=== PATIENT | male | born 1960 | race Caucasian/White ===

== ENCOUNTER 2017-02-07 05:38 | Inpatient (IN) | payer BC, OTHER ==
[2016-12-27 14:09] VITALS: BMI 41.0
[2016-12-27 14:27] VITALS: BMI 41.0
--- NOTE | 2016-12-27 14:48 | PAT Medication Instructions ---
Service Date Dec 27, 2016. 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
--- NOTE | 2016-12-27 15:45 | DIAGNOSTIC IMAGING REPORT ---
CHEST 2 VIEWS ROUTINE HISTORY: Preop. COMPARISON: None. FINDINGS: The lungs are clear. Cardiac silhouette is normal in size. No pleural effusions. No pneumothorax. IMPRESSION: No acute process. Electronically signed by: Lamont Vann M.D. 12/27/2016 3:43 PM Dictated Date/Time: 12/27/2016 3:42 PM
[2016-12-27 16:16] LABS: BASO % 0.4 %; BASO ABS # 0.04 K/uL (0-0.2); COMPLETE YES; EOS % 1.5 %; HEMATOCRIT 43.1 % (42-52); IG% 0.2 %; LYMPH % 26.4 %; LYMPH ABS # 2.66 K/uL (1.2-3.4); MEAN CELL VOLUME 86.4 fL (80-100); MEAN CORPUSCULAR HEMOGLOBIN 30.1 pg (25-34); MEAN CORPUSCULAR HGB CONC 34.8 g/dl (32-36); MEAN PLATELET VOLUME 11.5 fL (7.4-10.4); MONO % 6.9 %; NEUT % 64.6 %; PLATELET COUNT 201 K/uL (130-400); RED BLOOD COUNT 4.99 M/uL (4.7-6.1); WHITE BLOOD COUNT 10.06 K/uL (4.8-10.8)
[2016-12-27 16:25] LABS: PROTHROMBIN TIME (PATIENT) 10.7 SECONDS (9.0-12.0)
[2016-12-27 16:34] LABS: URINE APPEARANCE CLEAR (CLEAR); URINE BILIRUBIN NEG (NEG); URINE COLOR YELLOW; URINE NITRITE NEG (NEG); URINE SPECIFIC GRAVITY 1.026 (1.000-1.030); UROBILINOGEN NEG (NEG); ZZUR CULT IF INDIC CLEAN CATCH NO
[2016-12-27 16:35] LABS: BUN/CREATININE RATIO 22.1 (10-20); CALCIUM 8.7 mg/dl (8.5-10.1); CREATININE 0.73 mg/dl (0.60-1.40); POTASSIUM 3.7 mmol/L (3.5-5.1)
[2016-12-27 16:48] LABS: MANUAL MICROSCOPIC REQUIRED? NO; REVIEW REQ? NO
[2016-12-28 06:16] LABS: ESTIMATED AVERAGE GLUCOSE 111 mg/dl; HA1C FLAG Normal (Normal)
--- NOTE | 2016-12-28 15:52 | HISTORY & PHYSICAL EXAMINATION ---
DATE OF ADMISSION: 01/16/2017 CHIEF COMPLAINT: Bilateral knee pain. HISTORY OF PRESENT ILLNESS: Mr. Blackburn is a 56-year-old male with a 6-month history of bilateral knee pain. The patient rates his pain an 8/10. He has pain with his daily activities. He has limited standing and walking tolerance. Pain is worse with weightbearing. The patient has failed injections, bracing, PT and anti-inflammatories. He has failed conservative treatment and is scheduled for a bilateral knee replacement. PAST MEDICAL HISTORY: Hypertension and sleep apnea with CPAP. He denies heart disease, diabetes or DVT. PAST SURGICAL HISTORY: Cholecystectomy. SOCIAL HISTORY: The patient denies alcohol or tobacco use. He lives in a single rossy home. 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 FAMILY HISTORY: Positive for DVT in his brother who at age 43. MEDICATIONS: Diltiazem 240 mg daily, lisinopril 20 mg daily, aspirin 81 mg daily. ALLERGIES: None. REVIEW OF SYSTEMS: See HPI. Ten other systems reviewed, all negative. PHYSICAL EXAMINATION: VITAL SIGNS: Height 5 feet 10 inches, weight 285 pounds, BMI is 41. GENERAL: This is a well-developed, well-nourished male who is alert and oriented x3. Mood and affect are appropriate. HEENT: Normocephalic, atraumatic. Mucous membranes are moist and intact. NECK: Supple without lymphadenopathy. HEART: Regular rate and rhythm without murmurs, rubs or gallops. LUNGS: Clear to auscultation without wheezes or rhonchi. ABDOMEN: Soft and nontender. Bowel sounds are equal and active. EXTREMITIES: No ecchymosis, redness or warmth. He has neutral alignment. Range of motion is from 0-120 degrees bilaterally. He has moderate effusion on the right. He has +2 laxity on the right and +1 medial laxity on the left. He is otherwise neurovascularly intact. X-RAY EXAMINATION: AP and lateral views show joint space narrowing and osteophyte formation, right greater than left. IMPRESSION: Degenerative joint disease, bilateral knees. PLAN: The patient will be admitted for a bilateral total knee arthroplasty. We will plan on aspirin for DVT prophylaxis. The patient is going to consider home health versus a short stay at [facility].
--- NOTE | 2017-02-06 19:44 | HISTORY & PHYSICAL EXAMINATION ---
DATE OF ADMISSION: 02/07/2017 HISTORY OF PRESENT ILLNESS: The patient is a 56-year-old white male being seen with complaints of bilateral knee pain with severe endstage DJD bilateral knee. He has failed attempts at conservative management including physical therapy, anti-inflammatories, relative rest, activity modification, corticosteroid injections and viscosupplementations. PAST MEDICAL HISTORY: Significant for hypertension, sleep apnea, utilizing CPAP. He denies history of heart disease, diabetes or DVT. PAST SURGICAL HISTORY: Significant for cholecystectomy. SOCIAL HISTORY: The patient denies history of alcohol or tobacco use. He lives in a single rossy home. 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 FAMILY HISTORY: Consistent with DVT in his brother who at age 43. MEDICATIONS: Diltiazem 20 mg, lisinopril 20 mg p.o. daily, Aspirin 81 mg p.o. daily. ALLERGIES: None. REVIEW OF SYSTEMS: See history of present illness for pertinent positives. PHYSICAL EXAMINATION: HEENT: Otherwise unremarkable, atraumatic, normocephalic, 5 foot, 10 inches, 285 pounds, BMI of 41. HEART: Regular at 72 beats per minute. No murmurs are noted. LUNGS: Clear without rales, rhonchi, or wheezes noted. ABDOMEN: Soft, nondistended. Bowel sounds are present in all 4 quadrants. RECTAL: No rectal examination was performed. MUSCULOSKELETAL: Consistent with that of ongoing bilateral knee pain. PLAN: Bilateral total knee arthroplasty, postoperative pain management, DVT prophylaxis, antibiotics as noted above.
[2017-02-07] VITALS (10 sets, daily range): BP systolic 122–167; BP diastolic 78–92; PULSE 73–112; TEMP 36.6–37.2; O2SAT 93–98; Ht 177.8 cm; Wt 130.5 kg
[~2017-02-07] VITALS: Ht 177.8 cm; Wt 130.5 kg
[~2017-02-07 05:38] MED LIST: ACETAMINOPHEN 500 MG TAB PO SCH; ASPI81TA28 PO; CEFAZOLIN 3000MG IV PUSH 15 ML IV SCH; CeleBREX 200 MG CAP PO SCH; DEXAMETHASONE 4 MG TAB PO SCH; DILT-115 PO; FAMOTIDINE 20 MG TAB PO SCH; GABAPENTIN 300 MG CAP PO SCH; LACTATED RINGER'S 1000ML 1,000 ML IV SCH; LACTATED RINGER'S 1000ML 500 ML IV ONE; LACTATED RINGER'S 1000ML IV SCH; LISI-461 PO; NAPR1TAB9 PO; OXYC-59 PO; PANT1TAB3 PO; ROPIVACAINE 5MG/ML 30 ML 150 MG, BUPIVACAINE 0.5% MPF INJ 30 ML, EpINEphrine HCL INJ 0.... INFIL SCH; TRANEXAMIC ACID INJ 1,000 MG in SYRINGE 0 ML IV SCH; ZOLP10TA6 PO
[2017-02-07] MEDS ORDERED: CEFAZOLIN 3000MG IV PUSH 15 ML IV SCH (06:00)
[2017-02-07] MEDS ORDERED: ACETAMINOPHEN 500 MG TAB PO SCH (06:00)
[2017-02-07] MEDS ORDERED: CeleBREX 200 MG CAP PO SCH (06:00)
[2017-02-07] MEDS ORDERED: LACTATED RINGER'S 1000ML IV SCH (06:00)
[2017-02-07] MEDS ORDERED: GABAPENTIN 300 MG CAP PO SCH (06:00)
[2017-02-07] MEDS ORDERED: DEXAMETHASONE 4 MG TAB PO SCH (06:00)
[2017-02-07] MEDS ORDERED: METOCLOPRAMIDE HCL 10 MG TAB PO SCH (06:00)
[2017-02-07] MEDS ORDERED: FAMOTIDINE 20 MG TAB PO SCH (06:00)
[2017-02-07] MEDS ORDERED: ROPIVACAINE 5MG/ML 30 ML 150 MG, BUPIVACAINE 0.5% MPF INJ 30 ML, EpINEphrine HCL INJ 0.... INFIL SCH ×8 (06:00)
[2017-02-07] MEDS ORDERED: BUPIVACAINE 0.5 % 5 MG/1 ML PF 10ML VIAL ONE (06:27)
[2017-02-07] MEDS ORDERED: BUPIVACAINE 0.25% 30 ML VIAL ONE (06:28)
[2017-02-07] MEDS ORDERED: DEXAMETHASONE SOD INJ 4 MG/ML VIAL ONE (06:29)
[2017-02-07] MEDS ORDERED: EpINEphrine INJ 1MG/ML AMP 1 MG/ML AMP ONE (06:29)
[2017-02-07] MEDS: TRANEXAMIC ACID INJ 1,000 MG in SYRINGE 0 ML IV SCH ×2 (06:30→08:00)
[2017-02-07] MEDS ORDERED: ACETAMINOPHEN 500 MG TAB PO ONE (06:44)
[2017-02-07] MEDS ORDERED: CeleBREX 200 MG CAP ONE (06:44)
[2017-02-07] MEDS ORDERED: CEFAZOLIN SOD 2000MG/10 ML IV PUSH IV ONE (06:44)
[2017-02-07] MEDS ORDERED: GABAPENTIN 300 MG CAP PO ONE (06:44)
[2017-02-07] MEDS ORDERED: METOCLOPRAMIDE HCL 10 MG TAB PO ONE (06:44)
[2017-02-07] MEDS ORDERED: DEXAMETHASONE 4 MG TAB ONE (06:44)
[2017-02-07] MEDS ORDERED: FAMOTIDINE 20 MG TAB ONE (06:44)
[2017-02-07] MEDS ORDERED: OXYC15TA89 PO (06:48)
[2017-02-07] MEDS ORDERED: CEFAZOLIN SOD 3000MG/15 ML IV PUSH IV ONE (06:48)
--- NOTE | 2017-02-07 06:55 | History & Physical Bridge Note ---
H&P Re-Evaluation Bridge Note: I have examined the patient, reviewed the History & Physical and in the interval since the performance of the History & Physical I have noted the following changes of clinical significance: No changes noted
[2017-02-07] MEDS ORDERED: MIDAZOLAM HCL 1 MG/ML 2ML VIAL ONE (07:02)
[2017-02-07] MEDS ORDERED: FENTANYL CITRATE INJ 50 MCG/1 ML 2 ML VIAL ONE (07:02)
[2017-02-07] MEDS ORDERED: EpHEDrine SULFATE 50MG/5ML SYR ONE (07:10)
[2017-02-07] MEDS ORDERED: LIDOCAINE HCL 2% 2 ML VIAL (20MG/ML) ONE (07:10)
[2017-02-07] MEDS ORDERED: PROPOFOL IV EMULSION 10 MG/ML 20 ML VIAL IV ONE ×3 (07:10→10:26)
[2017-02-07] MEDS ORDERED: ORTHO JOINT ANESTHETIC ONE (07:37)
[2017-02-07] MEDS ORDERED: POVIDONE-IODINE OP SOLN 30 ML BTL ONE (07:37)
[2017-02-07] MEDS ORDERED: BACITRACIN 50000 UNIT VIAL ONE (07:37)
[2017-02-07] MEDS ORDERED: ATROPINE SULFATE 0.1 MG/ML 5ML SYR IV PRN (09:00)
[2017-02-07] MEDS ORDERED: EpHEDrine SULFATE INJ 50 MG/ML AMP IV PRN (09:00)
[2017-02-07] MEDS ORDERED: ONDANSETRON INJ 2 MG/ML 2 ML VIAL IV PRN ×2 (09:00→11:00)
[2017-02-07] MEDS ORDERED: FENTANYL CITRATE INJ 50 MCG/1 ML 2 ML VIAL IV PRN (09:00)
--- NOTE | 2017-02-07 10:21 | [facility] Operative Report ---
Operative Report Operative Date Feb 07, 2017. Pre-Operative Diagnosis Degenerative joint disease Post-Operative Diagnosis Degenerative joint disease Procedure(s) Performed Bilateral total knee arthroplasties utilizing [employer]uga [employer] Nephew journey 2 patient matched total knee arthroplasty 6 right is 6 femur 6 tibia 10 Kirsten 35 oval patella left 6 femur 6 tibia 12 Kirsten [address] Jimi Pa Board Operator Surgeon(s) Jeremy Chowdary PAC Estimated Blood Loss 5cc Findings Patient presents after failing attempts at conservative management with severe end-stage tricompartmental degenerative joint disease bilateral knees varus alignment subchondral cystic changes osteophytes sclerosis varus alignment large muscle conservative therapy including injections anti-inflammatories relative rest activity modification corticosteroid injections as well as viscose supplementation Specimens A: Right knee bone and tissue B: Left knee bone and tissue Complication(s) None Disposition Recovery Room / PACU Indications Patient presents with severe end-stage DJD nonresponse to conservative therapy bilaterally patient has subchondral cystic changes sclerosus varus alignment marginal osteophytes with the degenerative changes medial compartment patellofemoral compartment Description of Procedure After proper prepping and draping of the bilateral lower extremities, an anterior midline incision was made over the region of the extensor extensor mechanism of the left knee. After meticulous hemostasis was obtained and maintained in subcutaneous tissues a medial parapatellar incision was made The patella was subluxed lateralward the medial lateral gutter were cleaned from any hypertrophic synovitis and scar tissue of the distal femoral block was placed and the distal femoral osteotomy cut was made subsequently the chamfers anterior and posterior osteotomy cuts were made utilizing the 4-in-1 block the tibia was subsequently subluxed anteriorward medial and ateral meniscal remnants were excised in their entirety remnants of the anterior and posterior cruciate ligaments were excised in their entirety excellent exposure of the proximal tibia was obtained the tibial osteotomy guide was placed on the proximal tibial osteotomy cut was made once again the knee was irrigated with copious amounts of sterile saline solution the patella was subsequently everted lateralward thickened scar tissue around the patella was removed the patella was subsequently cut utilizing a freehand technique and was drilled prepared for final preparation and placement of patella socially flexion-extension gaps were checked and the equal and symmetric trials were placed to the appropriate femoral and tibial trials with poly-spacer being placed for equal flexion and extension gaps and full range of motion including extension to 0 and flexion to 140 the trial components after having been taken to recovery range of motion was subsequently removed meticulous hemostasis was obtained and maintained subsequently a knee block injection of joint cocktail including ropivacaine 0.5 % 150 mg. Bupivacaine 0.5% epinephrine 1-200,030 mL's toradol 30 mg dexamethasone 4 mg ketamine 10 mg clonidine 100 micrograms normal saline solution 30 mg was infiltrated into the soft tissues of the posterior knee medial lateral gutters and periosteal synovium special attention was paid to protect neurovascular structures at all times subsequently trial components having been removed the knee was irrigated with sterile saline solution. debris was removed the proximal tibia was subsequently prepared and was made ready for the placement of the tibial component tibial component was also cemented and tamped into position the femoral component was subsequently placed and cemented in the position the patellar component was subsequently cemented in position because hemostasis once again obtained and maintained wound having been thoroughly irrigated with debridement and debridement lavage was performed as well as a medial parapatellar incision closed with #1 Vicryl in interrupted fashion subcutaneous was closed with #2 Vicryl skin was closed with skin clips Next, an anterior midline incision was made over the region of the extensor extensor mechanism of the right knee. After meticulous hemostasis was obtained and maintained in subcutaneous tissues a medial parapatellar incision was made The patella was subluxed lateralward the medial lateral gutter were cleaned from any hypertrophic synovitis and scar tissue of the distal femoral block was placed and the distal femoral osteotomy cut was made subsequently the chamfers anterior and posterior osteotomy cuts were made utilizing the 4-in-1 block the tibia was subsequently subluxed anteriorward medial and ateral meniscal remnants were excised in their entirety remnants of the anterior and posterior cruciate ligaments were excised in their entirety excellent exposure of the proximal tibia was obtained the tibial osteotomy guide was placed on the proximal tibial osteotomy cut was made once again the knee was irrigated with copious amounts of sterile saline solution the patella was subsequently everted lateralward thickened scar tissue around the patella was removed the patella was subsequently cut utilizing a freehand technique and was drilled prepared for final preparation and placement of patella socially flexion-extension gaps were checked and the equal and symmetric trials were placed to the appropriate femoral and tibial trials with poly-spacer being placed for equal flexion and extension gaps and full range of motion including extension to 0 and flexion to 140 the trial components after having been taken to recovery range of motion was subsequently removed meticulous hemostasis was obtained and maintained subsequently a knee block injection of joint cocktail including ropivacaine 0.5 % 150 mg. Bupivacaine 0.5% epinephrine 1-200,030 mL's toradol 30 mg dexamethasone 4 mg ketamine 10 mg clonidine 100 micrograms normal saline solution 30 mg was infiltrated into the soft tissues of the posterior knee medial lateral gutters and periosteal synovium special attention was paid to protect neurovascular structures at all times subsequently trial components having been removed the knee was irrigated with sterile saline solution. debris was removed the proximal tibia was subsequently prepared and was made ready for the placement of the tibial component tibial component was also cemented and tamped into position the femoral component was subsequently placed and cemented in the position the patellar component was subsequently cemented in position because hemostasis once again obtained and maintained wound having been thoroughly irrigated with debridement and debridement lavage was performed as well as a medial parapatellar incision closed with #1 Vicryl in interrupted fashion subcutaneous was closed with #2 Vicryl skin was closed with skin clips.. PA-C was necessary for prepping and drapping as well as wound closure of deep fascia Sub cutaneous tissue and skin and was necessary for the case. A sterile compressive dressings were placed, patient was taken to recovery in stable condition of report dictated by Thierno I attest to the content of the Intraoperative Record and any orders documented therein. Any exceptions are noted below. I attest to the content of the Intraoperative Record and any orders documented therein. Any exceptions are noted below.
[2017-02-07] MEDS ORDERED: ALUMINUM/MAGNESIUM/SIMETH (MAALOX MAX) 30 ML UDC PO PRN (11:00)
[2017-02-07] MEDS ORDERED: BISACODYL 10 MG SUPP PR PRN (11:00)
[2017-02-07] MEDS ORDERED: MAGNESIUM HYDROXIDE SUSP 30 ML UDC PO PRN (11:00)
[2017-02-07] MEDS ORDERED: TAMSULOSIN HCL 0.4 MG CAP PO PRN (11:00)
--- NOTE | 2017-02-07 11:28 | DIAGNOSTIC IMAGING REPORT ---
L KNEE 1 OR 2 VIEWS ROUTINE CLINICAL HISTORY: Postoperative evaluation. COMPARISON: None FINDINGS: Alignment of the total left knee arthroplasty is anatomic. No fracture or unexpected radiopaque foreign bodies are present. Surgical drain and skin sukhdev are noted. IMPRESSION: Expected findings following total left knee arthroplasty. Electronically signed by: Rustam Vargas M.D. 02/07/2017 11:27 AM Dictated Date/Time: 02/07/2017 11:26 AM
--- NOTE | 2017-02-07 11:29 | DIAGNOSTIC IMAGING REPORT ---
R KNEE 1 OR 2 VIEWS ROUTINE CLINICAL HISTORY: Postoperative evaluation. COMPARISON: None FINDINGS: Alignment of the total right knee arthroplasty is anatomic. There is no periprosthetic fracture or unexpected radiopaque foreign body. Drain and skin sukhdev are present. IMPRESSION: Expected findings following total right knee arthroplasty. Electronically signed by: Rustam Vargas M.D. 02/07/2017 11:28 AM Dictated Date/Time: 02/07/2017 11:27 AM
--- NOTE | 2017-02-07 12:37 | Anesthesiology Progress Note ---
Anesthesia Post Op Note Date & Time Feb 07, 2017 at 12:37 Vital Signs Pain Intensity: 6.0 Vital Signs Past 12 Hours Date Time Temp Pulse Resp B/P (MAP) Pulse Ox O2 Delivery O2 Flow Rate FiO2 02/07/17 12:22 73 19 126/78 (94) 98 Nasal Cannula 2.0 02/07/17 11:40 97 Nasal Cannula 2.0 02/07/17 11:40 36.9 77 18 150/87 (108) 97 Nasal Cannula 2.0 02/07/17 11:40 Nasal Cannula 2.0 02/07/17 11:26 36.4 76 17 02/07/17 11:26 76 17 132/81 97 02/07/17 11:21 77 20 02/07/17 11:21 76 20 140/72 95 02/07/17 11:16 77 15 02/07/17 11:16 77 15 144/76 95 02/07/17 11:11 78 17 02/07/17 11:11 80 17 138/92 97 02/07/17 11:06 81 14 02/07/17 11:06 81 14 146/78 95 02/07/17 11:01 80 14 131/78 98 02/07/17 11:01 80 14 02/07/17 10:56 88 20 123/72 94 02/07/17 10:56 88 20 02/07/17 10:54 122/73 02/07/17 10:51 36.5 88 16 123/72 96 Nasal Cannula 3 02/07/17 07:01 36.7 79 20 147/85 96 Room Air Notes Mental Status: alert / awake / arousable, participated in evaluation Pt Amnestic to Procedure: Yes Nausea / Vomiting: adequately controlled Pain: adequately controlled Airway Patency, RR, SpO2: stable & adequate BP & HR: stable & adequate Hydration State: stable & adequate Anesthetic Complications: no major complications apparent
[2017-02-07] MEDS: MoRPHine SULFATE 4 MG/ML 1 ML CARP\\VIAL IV PRN (13:26)
[2017-02-07] MEDS: D5W AND 1/2NSS + 20MEQ KCL 1,000 ML IV SCH (13:36)
[2017-02-07] MEDS: ACETAMINOPHEN 500 MG TAB PO SCH ×2 (13:51→21:26)
[2017-02-07] MEDS: OXYCODONE HCL IR 5 MG TAB (IMMEDIATE RELEASE) PO PRN ×2 (14:11→19:49)
[2017-02-07] MEDS: CEFAZOLIN IV 2,000 MG in SYRINGE 0 ML IV SCH (15:30)
[2017-02-07] MEDS: FERROUS GLUCONATE 324 MG TAB PO SCH (17:58)
[2017-02-07] MEDS: MoRPHine SULFATE 10 MG/ML CARP/VIAL IV PRN ×2 (17:58→22:04)
[2017-02-07] MEDS: DILTIAZEM HCL 120 MG EXT REL CAP PO SCH (21:25)
[2017-02-07] MEDS: LISINOPRIL 20 MG TAB PO SCH (21:25)
[2017-02-07] MEDS: CeleBREX 200 MG CAP PO SCH (21:26)
[2017-02-07] MEDS: ZOLPIDEM TARTRATE 10 MG TAB PO SCH (21:26)
[2017-02-07] MEDS: DOCUSATE SODIUM 100 MG CAP PO SCH (21:26)
[2017-02-07] MEDS: SENNA 8.6 MG TAB PO SCH (21:26)
[2017-02-08] VITALS (7 sets, daily range): BP systolic 115–164; BP diastolic 73–89; PULSE 85–103; TEMP 36.4–37; O2SAT 92–98
[2017-02-08] MEDS: CEFAZOLIN IV 2,000 MG in SYRINGE 0 ML IV SCH (00:08)
[2017-02-08] MEDS: D5W AND 1/2NSS + 20MEQ KCL 1,000 ML IV SCH ×2 (00:09→09:15)
[2017-02-08] MEDS: OXYCODONE HCL IR 5 MG TAB (IMMEDIATE RELEASE) PO PRN ×5 (00:22→19:31)
[2017-02-08] MEDS: TRAMADOL HCL 50 MG TAB PO PRN ×4 (02:24→17:56)
[2017-02-08] MEDS ORDERED: LACTATED RINGER'S 1000ML 500 ML IV ONE (06:00)
[2017-02-08] MEDS ORDERED: LACTATED RINGER'S 1000ML 1,000 ML IV SCH (06:00)
[2017-02-08 06:02] LABS: HEMATOCRIT 35.5 % (42-52); MEAN CELL VOLUME 84.3 fL (80-100); MEAN CORPUSCULAR HEMOGLOBIN 29.9 pg (25-34); MEAN CORPUSCULAR HGB CONC 35.5 g/dl (32-36); PLATELET COUNT 217 K/uL (130-400); RED BLOOD COUNT 4.21 M/uL (4.7-6.1); WHITE BLOOD COUNT 14.58 K/uL (4.8-10.8)
[2017-02-08] MEDS: ACETAMINOPHEN 500 MG TAB PO SCH ×3 (06:09→21:15)
[2017-02-08] MEDS: MoRPHine SULFATE 10 MG/ML CARP/VIAL IV PRN ×2 (06:09→10:14)
[2017-02-08 06:36] LABS: BUN/CREATININE RATIO 15.3 (10-20); CALCIUM 8.3 mg/dl (8.5-10.1); CREATININE 0.84 mg/dl (0.60-1.40); POTASSIUM 3.8 mmol/L (3.5-5.1)
--- NOTE | 2017-02-08 07:57 | Orthopedic Progress Note ---
Orthopedic Progress Note Date of Service Feb 08, 2017. Subjective Post OP Day: 1 Reports: feeling well, Denies: chest pain, SOB, nausea / vomiting, light headedness, calf pain Objective calves soft nontender, N/V intact, capillary refill less than 2 sec., dressing C /D/I, A&O x3, toes mobile, hemovac drainage (L 400/250 CC PER SHIFT; R 350/100 PER SHIFT) Date Time Temp Pulse Resp B/P (MAP) Pulse Ox O2 Delivery O2 Flow Rate FiO2 02/08/17 07:02 36.8 94 18 115/76 (89) 92 Room Air 02/08/17 03:50 37.0 85 18 122/74 (90) 96 Room Air 02/07/17 23:45 Room Air CPAP 02/07/17 23:03 37.2 94 20 122/81 (95) 93 Room Air 02/07/17 21:25 112 167/92 (117) 02/07/17 20:16 36.6 94 20 140/80 (100) 96 Nasal Cannula 2.0 02/07/17 16:45 96 Nasal Cannula 2.0 02/07/17 15:00 36.6 78 18 135/83 (100) 96 Nasal Cannula 2.0 02/07/17 13:31 76 18 158/82 (107) 96 Nasal Cannula 2.0 02/07/17 12:40 77 16 127/79 (95) 96 Nasal Cannula 2.0 02/07/17 12:22 73 19 126/78 (94) 98 Nasal Cannula 2.0 02/07/17 11:40 97 Nasal Cannula 2.0 02/07/17 11:40 36.9 77 18 150/87 (108) 97 Nasal Cannula 2.0 02/07/17 11:40 Nasal Cannula 2.0 02/07/17 11:26 36.4 76 17 02/07/17 11:26 76 17 132/81 97 02/07/17 11:21 77 20 02/07/17 11:21 76 20 140/72 95 02/07/17 11:16 77 15 02/07/17 11:16 77 15 144/76 95 02/07/17 11:11 78 17 02/07/17 11:11 80 17 138/92 97 02/07/17 11:06 81 14 02/07/17 11:06 81 14 146/78 95 02/07/17 11:01 80 14 131/78 98 02/07/17 11:01 80 14 02/07/17 10:56 88 20 123/72 94 02/07/17 10:56 88 20 02/07/17 10:54 122/73 02/07/17 10:51 36.5 88 16 123/72 96 Nasal Cannula 3 Laboratory Results 24 Hours: Test 02/08/17 05:38 Hematocrit 35.5 % Hemoglobin 12.6 g/dL Assessment & Plan Assessment: POD#1 SP BL TKAS Plan: PT/OT DVT PROPH- LOVENOX PAIN MANAGEMENT- MARGARITA, TYLENOL, CELEBREX DC PLANNING- REQUESTING REFERRAL TO [facility]
--- NOTE | 2017-02-08 08:14 | Clinical Documentation Query ---
CLINICAL DOCUMENTATION QUERY A 56-year-old white male being seen with complaints of bilateral knee pain with severe endstage DJD bilateral knee. In order for coders to capture the severity of 41 BMI, the provider must document obese-(ity) in the patient's medical record. In your clinical opinion is this patient being managed for: (x ) Obesity ( ) Not Agree ( ) Other explanation of clinical findings (Please Explain) ( ) Unable to determine (Please Define) ( ) Need to Discuss The medical record reflects the following clinical findings, treatment, and risk factors. Clinical Indicators: BMI 41.3 Treatment: CPAP Risk Factors: S/P bilateral knee arthroplasty, sleep apnea, HTN Please clarify and document your clinical opinion in the progress notes and discharge summary. Terms such as "probable", "suspected", "likely", "questionable", "possible", or "still to be ruled out" are acceptable. IF IN AGREEMENT, YOU MUST DOCUMENT ABOVE DIAGNOSTIC STATEMENT IN DAILY PROGRESS NOTES AND DISCHARGE SUMMARY. This document is not part of the patient's record. Thank You, Michelle Peres RN [phone]
[2017-02-08] MEDS: FERROUS GLUCONATE 324 MG TAB PO SCH ×3 (09:05→17:50)
[2017-02-08] MEDS: PANTOprazole SOD 40 MG TAB PO SCH (09:06)
[2017-02-08] MEDS: CeleBREX 200 MG CAP PO SCH ×2 (09:06→21:13)
[2017-02-08] MEDS: MULTIVITAMIN TAB PO SCH (09:06)
[2017-02-08] MEDS: DOCUSATE SODIUM 100 MG CAP PO SCH ×2 (09:06→21:13)
[2017-02-08] MEDS: ENOXAPARIN 40 MG/0.4 ML SYR SQ SCH (09:08)
--- NOTE | 2017-02-08 10:23 | Anesthesiology Progress Note ---
Anesthesia Post Op Note Date & Time Feb 08, 2017 at 10:23 Vital Signs Vital Signs Past 12 Hours Date Time Temp Pulse Resp B/P (MAP) Pulse Ox O2 Delivery O2 Flow Rate FiO2 02/08/17 07:40 Room Air 02/08/17 07:02 36.8 94 18 115/76 (89) 92 Room Air 02/08/17 03:50 37.0 85 18 122/74 (90) 96 Room Air 02/07/17 23:45 Room Air CPAP 02/07/17 23:03 37.2 94 20 122/81 (95) 93 Room Air Notes Mental Status: alert / awake / arousable, participated in evaluation Pt Amnestic to Procedure: Yes Nausea / Vomiting: adequately controlled Pain: adequately controlled Airway Patency, RR, SpO2: stable & adequate BP & HR: stable & adequate Hydration State: stable & adequate Neuraxial Anesthesia: was administered, sensory block resolved Anesthetic Complications: no major complications apparent
[2017-02-08] MEDS: MoRPHine SULFATE 4 MG/ML 1 ML CARP\\VIAL IV PRN ×2 (15:33→21:39)
[2017-02-08] MEDS: ZOLPIDEM TARTRATE 10 MG TAB PO SCH (21:12)
[2017-02-08] MEDS: SENNA 8.6 MG TAB PO SCH (21:13)
[2017-02-08] MEDS: DILTIAZEM HCL 120 MG EXT REL CAP PO SCH (21:14)
[2017-02-08] MEDS: LISINOPRIL 20 MG TAB PO SCH (21:14)
[2017-02-09] MEDS: OXYCODONE HCL IR 5 MG TAB (IMMEDIATE RELEASE) PO PRN ×6 (00:12→23:38)
[2017-02-09] MEDS: ACETAMINOPHEN 500 MG TAB PO SCH ×3 (05:24→21:00)
[2017-02-09] MEDS: MoRPHine SULFATE 4 MG/ML 1 ML CARP\\VIAL IV PRN (06:05)
--- NOTE | 2017-02-09 07:09 | Orthopedic Progress Note ---
Orthopedic Progress Note Date of Service Feb 09, 2017. Subjective Post OP Day: 2 Reports: feeling well, pain controlled w PO medications, Denies: complaints, chest pain, SOB, nausea / vomiting, light headedness, calf pain Additional Notes: pain currently 8/10 Objective calves soft nontender, N/V intact, capillary refill less than 2 sec., dressing C /D/I (bilateral silverlon intact), A&O x3, toes mobile Date Time Temp Pulse Resp B/P (MAP) Pulse Ox O2 Delivery O2 Flow Rate FiO2 02/09/17 00:00 Room Air 02/08/17 23:22 36.7 85 16 131/76 (94) 95 Room Air 02/08/17 19:14 98 Room Air 02/08/17 15:31 36.4 89 18 147/87 (107) 93 Room Air 02/08/17 15:30 Room Air 02/08/17 11:08 93 92 02/08/17 10:55 36.7 103 18 164/89 (114) 95 Room Air 02/08/17 07:40 Room Air Assessment & Plan Assessment: POD#2 SP BL TKAS Plan: PT/OT DVT PROPH- LOVENOX PAIN MANAGEMENT- [facility]ARG[facility]ITA, TYLENOL, CELEBREX -poor pain control POD #1, will add Oxycontin 10mg q12 hours DC PLANNING- REQUESTING REFERRAL TO [facility], awaiting approval Discharge Planning Discharge Planning: rehab hospital DVT Prophylaxis: TEDs, SCDs, Lovenox
[2017-02-09 07:14] VITALS: BP 158/73; PULSE 93; TEMP 36.8; O2SAT 95
[2017-02-09] MEDS ORDERED: OXYCODONE HCL 10 MG TABCR (OXYCONTIN) PO SCH (07:15)
[2017-02-09] MEDS ORDERED: MoRPHine SULFATE 2 MG/ML CARP IV PRN (07:30)
[2017-02-09] MEDS: TRAMADOL HCL 50 MG TAB PO PRN ×4 (08:01→21:37)
[2017-02-09] MEDS: CeleBREX 200 MG CAP PO SCH ×2 (08:36→20:25)
[2017-02-09] MEDS: PANTOprazole SOD 40 MG TAB PO SCH (08:36)
[2017-02-09] MEDS: MULTIVITAMIN TAB PO SCH (08:37)
[2017-02-09] MEDS: FERROUS GLUCONATE 324 MG TAB PO SCH ×3 (08:37→19:02)
[2017-02-09] MEDS: ENOXAPARIN 40 MG/0.4 ML SYR SQ SCH (08:37)
[2017-02-09] MEDS: DOCUSATE SODIUM 100 MG CAP PO SCH ×2 (08:37→20:57)
[2017-02-09] MEDS: MoRPHine SULFATE CR 15 MG TAB (MS CONTIN) PO SCH (14:27)
[2017-02-09] MEDS: KETOROLAC TROMETHAMINE 30 MG/ML VIAL IV SCH ×2 (14:28→20:56)
[2017-02-09 15:59] VITALS: BP 135/77; PULSE 89; TEMP 36.6; O2SAT 93
[2017-02-09] MEDS: ZOLPIDEM TARTRATE 10 MG TAB PO SCH (20:57)
[2017-02-09] MEDS: SENNA 8.6 MG TAB PO SCH (20:58)
[2017-02-09] MEDS: DILTIAZEM HCL 120 MG EXT REL CAP PO SCH (21:01)
[2017-02-09] MEDS: LISINOPRIL 20 MG TAB PO SCH (21:02)
[2017-02-09 23:43] VITALS: BP 121/75; PULSE 88; TEMP 36.7; O2SAT 93
[2017-02-10] MEDS: KETOROLAC TROMETHAMINE 30 MG/ML VIAL IV SCH ×3 (01:53→13:44)
[2017-02-10] MEDS: MoRPHine SULFATE CR 15 MG TAB (MS CONTIN) PO SCH ×2 (01:54→13:43)
[2017-02-10] MEDS: ACETAMINOPHEN 500 MG TAB PO SCH ×3 (06:09→21:07)
[2017-02-10 06:38] LABS: BUN/CREATININE RATIO 20.9 (10-20); CALCIUM 8.3 mg/dl (8.5-10.1); CREATININE 0.81 mg/dl (0.60-1.40); POTASSIUM 3.6 mmol/L (3.5-5.1)
[2017-02-10 07:15] VITALS: O2SAT 96
--- NOTE | 2017-02-10 07:15 | Orthopedic Progress Note ---
Orthopedic Progress Note Date of Service Feb 10, 2017. Subjective Post OP Day: 3 Reports: feeling well, pain controlled w PO medications, Denies: complaints, chest pain, SOB, nausea / vomiting, light headedness, calf pain Objective calves soft nontender, N/V intact, capillary refill less than 2 sec., dressing C /D/I, A&O x3, toes mobile Date Time Temp Pulse Resp B/P (MAP) Pulse Ox O2 Delivery O2 Flow Rate FiO2 02/09/17 23:43 36.7 88 16 121/75 (90) 93 Room Air 02/09/17 23:30 Room Air 02/09/17 15:59 36.6 89 18 135/77 (96) 93 Room Air 02/09/17 15:25 Room Air 02/09/17 07:30 Room Air 02/09/17 07:14 36.8 93 18 158/73 (101) 95 Room Air Assessment & Plan Assessment: POD#3 SP BL TKAS Plan: PT/OT DVT PROPH- LOVENOX PAIN MANAGEMENT- MARGARITA, TYLENOL, CELEBREX -poor pain control POD #1, will add Oxycontin 10mg q12 hours DC PLANNING- [facility] hopefully today pending authorization Discharge Planning Discharge Planning: rehab hospital DVT Prophylaxis: TEDs, SCDs, Lovenox
[2017-02-10] MEDS ORDERED: CLB200 PO (08:29)
[2017-02-10] MEDS ORDERED: ONDA8TAB6 PO (08:29)
[2017-02-10] MEDS ORDERED: RXC5 PO (08:29)
[2017-02-10] MEDS ORDERED: LVNIS40 SQ (08:29)
--- NOTE | 2017-02-10 08:32 | Discharge Instructions ---
Discharge Instructions Date of Service Feb 10, 2017. Admission Reason for Admission: Bilateral Knee Degenerative Joint Disease Discharge Discharge Diagnosis / Problem: S/P Bilateral TKA Discharge Goals Goal(s): Decrease discomfort, Improve function Activity Recommendations Activity Level: Up Ad Rafaela Therapies: Physical Therapy . Additional Information Patient informed of condition: Yes Advance Directives: Yes DNR: No Level of Care: Acute Rehab Communicable Disease: No Prognosis: Stable Instructions / Follow-Up Instructions / Follow-Up ACTIVITY RECOMMENDATIONS: SELF CARE INSTRUCTIONS AFTER TOTAL KNEE REPLACEMENT A. You may need to continue a physical therapy program after discharge from the hospital. There are several options available to you. Your doctor will assist you in selecting the best one for you. 1. An out-patient facility 2 to 3 times a week for therapy or home therapy. 2. Continue working on all exercises taught to you in the hospital. Your goals should be to increase bending of your knee to 90 degrees and beyond and to fully straighten your knee. B. You may progress at your own pace from walking with a walker or crutches to a cane; then to no assistive devices. C. Make walking a part of your daily routine. Be up as much as comfortable with rest periods throughout the day. Rest with leg elevation is very important. Use the ice wrap frequently for the first 3-4 weeks. D. There are no restrictions on activities. You may ride in a car, shop, participate in blending tank tender helper and all social activities. E. Wear the long elastic stockings (ABDON hose) 20 hours a day for one month after surgery. They can be removed several times a day for laundering and for a bath. F. Do not place a pillow behind your knee when resting. A pillow at your ankle is okay. SPECIAL CARE INSTRUCTIONS: VERY IMPORTANT TO READ AND REVIEW A. Take Lovenox (blood thinning medications) as directed by your doctor. B. There are a few signs you need to watch for after you are home. Call [facility] if you notice any of the followin. Increased severe knee pain. Some pain is expected especially when you exercise. 2. Increased swelling in your leg or knee; pain or swelling of the calf muscle in either lower leg. 3. Any fluid drainage from the incision. 4. Shortness of breath or chest pain. C. Please call [facility] at if you have any concerns or questions about your operation or recovery. The doctor or his nurse will return your call promptly. D. You must take antibiotics before dental work, bladder, bowel or other surgery. Your doctor will provide you with a permanent care to carry describing this precaution. * YOU SHOULD START TAKING ASPIRIN, 325 MG, ONCE DAILY FOR 2 WEEKS AFTER YOU FINISH YOUR LOVENOX UNLESS OTHERWISE DIRECTED. * CALL IF INCREASED PAIN, REDNESS, DRAINAGE OR FEVER GREATER THAT 101. * WEAR ABDON HOSE 20 HOURS PER DAY FOR 4 WEEKS. FOLLOW UP VISIT: Your first 2 appointments have already been scheduled for you and are included in your pre-op packet. If you are unsure of the dates of these appointments or to make changes , please call as soon as possible. Current Hospital Diet Patient's current hospital diet: Regular Diet Discharge Diet Recommended Diet: Regular Diet Procedures Procedures Performed: Bilateral total knee arthroplasties utilizing [employer]hew journey 2 patient matched total knee arthroplasty 6 right is 6 femur 6 tibia 10 Kirsten 35 oval patella left 6 femur 6 tibia 12 Kirsten 35 oval patella Pending Studies Studies pending at discharge: no Laboratory Results Hemoglobin A1c Test 12/27/16 15:10 Range/Units Estimated Average Glucose 111 mg/dl Hemoglobin A1c 5.5 4.5-5.6 % Medical Emergencies . Who to Call and When: Medical Emergencies: If at any time you feel your situation is an emergency, please call 911 immediately. . Non-Emergent Contact Non-Emergency issues call your: Surgeon Call Non-Emergent contact if: temperature is above 101.5, your pain is worsening, wound has increased drainage, wound has increased redness . . "Provider Documentation" section prepared by Emiliano Mcknight. . Core Measure Problem Core Measures: None [place] Drug Monitoring [place] Search Results: patient reviewed within database, no issues identified
[2017-02-10 08:43] VITALS: BP 152/86; PULSE 96; TEMP 36.9; O2SAT 96
[2017-02-10] MEDS: MULTIVITAMIN TAB PO SCH (08:52)
[2017-02-10] MEDS: FERROUS GLUCONATE 324 MG TAB PO SCH ×3 (08:52→18:22)
[2017-02-10] MEDS: PANTOprazole SOD 40 MG TAB PO SCH (08:52)
[2017-02-10] MEDS: DOCUSATE SODIUM 100 MG CAP PO SCH ×2 (08:53→21:04)
[2017-02-10] MEDS: CeleBREX 200 MG CAP PO SCH ×2 (08:53→21:06)
[2017-02-10] MEDS: ENOXAPARIN 40 MG/0.4 ML SYR SQ SCH (08:53)
[2017-02-10] MEDS: OXYCODONE HCL IR 5 MG TAB (IMMEDIATE RELEASE) PO PRN ×4 (08:55→21:17)
[2017-02-10 11:00] VITALS: BP 152/84; PULSE 101; O2SAT 96
[2017-02-10] MEDS: TRAMADOL HCL 50 MG TAB PO PRN ×3 (11:00→20:26)
--- NOTE | 2017-02-10 14:53 | Urology Consultation ---
History General Date of Service: Feb 10, 2017. Chief Complaint: Voiding difficulty, Penile concerns Primary Care Physician: Emiliano Velazquez D.O. Pt seen a urologist before?: No History of Present Illness Had bilateral ortho surgery. Best was removed post op. Trouble starting and mild increase straining, however emptying well. Trouble with urinal and not being able to stand to void. Bowels not moving yet. Moderate pain on pain medications. No prior uro problems. Concerns with penis retracting and irritation of glans. Laboratory Labs were reviewed and are within normal limits unless listed below. Labs are available in the chart and at [facility] Past History arthritis Additional Comments: Surgical, Social, Medical, and family history reviewed. Pertinent information recorded. Please see full h&p for complete results. Social History Hx Tobacco Use In Past Year?: No (SMOKED 1 PPD X 15 YRS-QUIT 1988) Allergies Coded Allergies: No Known Allergies (Unverified , 02/07/17) Medications Home Medications: Home Meds and Scripts Medications Dose Route/Sig Max Daily Dose Days Date Category Zofran (Ondansetron HCl) 8 Mg Tab 8 Mg PO Q8 PRN 02/10/17 Rx Oxycodone HCl 5 Mg Tab 5-10 Mg PO Q4H PRN 02/10/17 Rx Celebrex (Celecoxib) 200 Mg Cap 200 Mg PO BID 30 02/10/17 Rx Enoxaparin Sodium (Enoxaparin) 40 Mg/0.4 Ml Inj 40 Mg SQ Q24H 14 02/10/17 Rx Oxycontin (Oxycodone Hcl) 15 Mg Tab 15 Mg PO Q12 02/07/17 Reported Zolpidem Tartrate 10 Mg Tab 1 Tab PO HS 01/01/17 Reported Protonix (Pantoprazole) 40 Mg Tab 40 Mg PO QAM 01/01/17 Reported Aleve (Naproxen) 220 Mg Tab 440 Mg PO BID PRN 12/27/16 Reported Aspirin Ec (Aspirin) 81 Mg Tab 81 Mg PO HS 12/27/16 Reported Zestril (Lisinopril) 10 Mg Tab 20 Mg PO HS 12/27/16 Reported Tiazac (Diltiazem HCl) 240 Mg Capcr 240 Mg PO HS 12/27/16 Reported Inpatient Medications: Current Inpatient Medications Medications (Trade) Dose Ordered Sig/Brady Route Start Time Stop Time Status Last Admin Dose Admin Diltiazem HCl (TIAzac CAP) 240 mg HS PO 02/07/17 21:00 03/09/17 20:59 02/09/17 21:01 240 MG Lisinopril (Zestril Tab) 20 mg HS PO 02/07/17 21:00 03/09/17 20:59 02/09/17 21:02 20 MG Pantoprazole Sodium (Protonix Tab) 40 mg QAM PO 02/08/17 09:00 03/10/17 08:59 02/10/17 08:52 40 MG Zolpidem Tartrate (Ambien Tab) 10 mg HS PO 02/07/17 21:00 03/09/17 20:59 02/09/17 20:57 10 MG Celecoxib (CeleBREX CAP) 200 mg BID PO 02/07/17 21:00 03/09/17 20:59 02/10/17 08:53 200 MG Oxycodone HCl (Roxicodone Immediate Rel Tab) 1 TABLET FOR PAIN RATING... Q4H PRN PO 02/07/17 11:00 02/21/17 10:59 02/10/17 13:02 10 MG Acetaminophen (Tylenol Tab) 1,000 mg Q8 PO 02/07/17 14:30 03/09/17 14:29 02/10/17 13:44 1,000 MG Magnesium Hydroxide (Milk Of Magnesia Susp) 30 ml Q6H PRN PO 02/07/17 11:00 03/09/17 10:59 Bisacodyl (Dulcolax Supp) 10 mg DAILY PRN W[place] 02/07/17 11:00 03/09/17 10:59 Senna (Senokot Tab) 17.2 mg HS PO 02/07/17 21:00 03/09/17 20:59 02/09/17 20:58 17.2 MG Docusate Sodium (coLACE CAP) 100 mg BID PO 02/07/17 21:00 03/09/17 20:59 02/10/17 08:53 100 MG Al Hydrox/Mg Hydrox/Simethicone (Maalox Max Susp) 15 ml Q4H PRN PO 02/07/17 11:00 03/09/17 10:59 Multivitamins (Multivitamin Tab) 1 tab QAM PO 02/08/17 09:00 1/6/18 08:59 02/10/17 08:52 1 TAB Ondansetron HCl (Zofran Inj) 4 mg Q6H PRN IV 02/07/17 11:00 03/09/17 10:59 Ferrous Gluconate (Ferrous Gluconate Tab) 324 mg TIDM PO 02/07/17 17:45 03/09/17 17:44 02/10/17 12:21 324 MG Tamsulosin HCl (Flomax Cap) 0.4 mg QAM PRN PO 02/07/17 11:00 03/09/17 10:59 Tramadol HCl (Ultram Tab) 1 tablet for pain rating... Q4H PRN PO 02/07/17 11:00 03/09/17 10:59 02/10/17 11:00 100 MG Enoxaparin Sodium (Lovenox Inj) 40 mg Q24H SQ 02/08/17 09:00 03/10/17 08:59 02/10/17 08:53 40 MG Morphine Sulfate (Oramorph Sr Tab) 15 mg Q12H PO 02/09/17 14:00 02/23/17 13:59 02/10/17 13:43 15 MG Review of Systems Review of Systems All Other Systems: Reviewed and Negative Additional Comments: Pertinent positives and negatives in HPI. All reviewed. Physical Exam Vital Signs: Vital Signs Past 12 Hours Date Time Temp Pulse Resp B/P (MAP) Pulse Ox O2 Delivery O2 Flow Rate FiO2 02/10/17 11:00 101 96 02/10/17 08:43 36.9 96 18 152/86 (108) 96 Room Air 02/10/17 07:15 96 Physical Exam: General Appearance: WD/WN, no apparent distress Eyes: bilateral eyes normal inspection ENT: normal ENT inspection, pharynx normal Neck: supple, no JVD Respiratory/Chest: chest non-tender, no respiratory distress, no accessory muscle use Cardiovascular: regular rate, rhythm Genitourinary - Male: Penis: normal penis, circumcised Urethral Meatus: normal urethral meatus Extremities: normal range of motion (Patient in braces post op lower ext joint surgery. bilateral braces. decreased range of motion. nonweight baring. ) Neurologic/Psychiatric: certified physician assistant II-XII nml as tested, alert, normal mood/affect, oriented x 3 Skin: normal color, warm/dry Lymphatic: no adenopathy Assessment & Plan Assessment & Plan 1. LUTS 2. Penile irritation 3. Deconditioned. Patient having trouble voiding post op, but normal residuals on bladder scan. Likely multifactorial. Recommend increasing activity. Normalizing bowel function. Normal fluid intake, and hygiene. Will likely resolve as patient improves post operatively. Follow up as needed.
[2017-02-10 14:55] VITALS: BP 151/71; PULSE 105; TEMP 36.8; O2SAT 95
[2017-02-10] MEDS: ZOLPIDEM TARTRATE 10 MG TAB PO SCH (21:03)
[2017-02-10] MEDS: SENNA 8.6 MG TAB PO SCH (21:04)
[2017-02-10] MEDS: DILTIAZEM HCL 120 MG EXT REL CAP PO SCH (21:05)
[2017-02-10] MEDS: LISINOPRIL 20 MG TAB PO SCH (21:06)
[2017-02-10 23:40] VITALS: BP 132/78; PULSE 95; TEMP 36.7; O2SAT 95
[2017-02-11] MEDS: TRAMADOL HCL 50 MG TAB PO PRN ×4 (00:55→16:59)
[2017-02-11] MEDS: MoRPHine SULFATE CR 15 MG TAB (MS CONTIN) PO SCH ×2 (02:09→14:00)
[2017-02-11] MEDS: ACETAMINOPHEN 500 MG TAB PO SCH ×3 (05:12→22:01)
[2017-02-11] MEDS: OXYCODONE HCL IR 5 MG TAB (IMMEDIATE RELEASE) PO PRN ×4 (05:13→21:17)
--- NOTE | 2017-02-11 06:48 | Orthopedic Progress Note ---
Orthopedic Progress Note Date of Service Feb 11, 2017. Subjective Post OP Day: 4 Reports: feeling well, pain controlled w PO medications, Denies: complaints, chest pain, SOB, nausea / vomiting, light headedness, calf pain Objective calves soft nontender, N/V intact, capillary refill less than 2 sec., dressing C /D/I, A&O x3, toes mobile Date Time Temp Pulse Resp B/P (MAP) Pulse Ox O2 Delivery O2 Flow Rate FiO2 02/11/17 00:15 Room Air CPAP 02/10/17 23:40 36.7 95 18 132/78 (96) 95 CPAP 02/10/17 15:50 Room Air 02/10/17 14:55 36.8 105 20 151/71 (97) 95 Room Air 02/10/17 11:00 101 96 02/10/17 08:43 36.9 96 18 152/86 (108) 96 Room Air 02/10/17 07:15 96 Assessment & Plan Assessment: POD#4 SP BL TKAS Plan: PT/OT DVT PROPH- LOVENOX PAIN MANAGEMENT- MARGARITA, TYLENOL, CELEBREX -poor pain control POD #1, will add Oxycontin 10mg q12 hours [place] [facility] [place]. Discharge Planning Discharge Planning: rehab hospital DVT Prophylaxis: TEDs, SCDs, Lovenox
[2017-02-11 07:43] VITALS: BP 135/73; PULSE 86; TEMP 36.6; O2SAT 95
[2017-02-11] MEDS: FERROUS GLUCONATE 324 MG TAB PO SCH ×3 (08:46→17:00)
[2017-02-11] MEDS: PANTOprazole SOD 40 MG TAB PO SCH (08:47)
[2017-02-11] MEDS: MULTIVITAMIN TAB PO SCH (08:47)
[2017-02-11] MEDS: DOCUSATE SODIUM 100 MG CAP PO SCH ×2 (08:47→21:19)
[2017-02-11] MEDS: CeleBREX 200 MG CAP PO SCH ×2 (08:48→21:19)
[2017-02-11 08:50] VITALS: O2SAT 95
[2017-02-11] MEDS: ENOXAPARIN 40 MG/0.4 ML SYR SQ SCH (08:51)
[2017-02-11 15:10] VITALS: BP 139/81; PULSE 99; TEMP 36.5; O2SAT 95
[2017-02-11] MEDS ORDERED: HYDROmorphone INJ 0.5 MG/0.5 ML SYR ONE (19:57)
[2017-02-11] MEDS ORDERED: NURSING VERBAL MED ORDER ONE (20:00)
[2017-02-11] MEDS: LISINOPRIL 20 MG TAB PO SCH (21:18)
[2017-02-11] MEDS: SENNA 8.6 MG TAB PO SCH (21:19)
[2017-02-11] MEDS: ZOLPIDEM TARTRATE 10 MG TAB PO SCH (21:52)
[2017-02-11] MEDS: DILTIAZEM HCL 120 MG EXT REL CAP PO SCH (22:11)
[2017-02-11 23:08] VITALS: BP 158/93; PULSE 96; TEMP 36.7; O2SAT 96
[2017-02-12] VITALS (7 sets, daily range): BP systolic 132–159; BP diastolic 74–87; PULSE 93–101; TEMP 36.4–37; O2SAT 92–98
[2017-02-12] MEDS: MoRPHine SULFATE CR 15 MG TAB (MS CONTIN) PO SCH ×2 (01:59→13:33)
[2017-02-12] MEDS: OXYCODONE HCL IR 5 MG TAB (IMMEDIATE RELEASE) PO PRN ×5 (03:07→20:41)
[2017-02-12] MEDS: TRAMADOL HCL 50 MG TAB PO PRN (04:08)
[2017-02-12] MEDS: ACETAMINOPHEN 500 MG TAB PO SCH ×3 (05:28→21:42)
[2017-02-12] MEDS: MULTIVITAMIN TAB PO SCH (09:02)
[2017-02-12] MEDS: DOCUSATE SODIUM 100 MG CAP PO SCH ×2 (09:02→21:39)
[2017-02-12] MEDS: PANTOprazole SOD 40 MG TAB PO SCH (09:02)
[2017-02-12] MEDS: CeleBREX 200 MG CAP PO SCH ×2 (09:03→21:40)
[2017-02-12] MEDS: FERROUS GLUCONATE 324 MG TAB PO SCH ×3 (09:03→19:56)
[2017-02-12] MEDS: ENOXAPARIN 40 MG/0.4 ML SYR SQ SCH (09:04)
[2017-02-12] MEDS ORDERED: GABAPENTIN 300 MG CAP PO ONE (09:45)
--- NOTE | 2017-02-12 09:46 | Orthopedic Progress Note ---
Orthopedic Progress Note Date of Service Feb 12, 2017. Subjective Post OP Day: 5 Denies: chest pain, SOB, nausea / vomiting, light headedness, calf pain Additional Notes: Pt with continued pain control issues. States he was doing somewhat "ok" over the weekend however he has found that after activity, it is difficult to relieve his pain generated by PT/exercises. Medications were changed last night by audio visual production specialist MD. Currently receiving 30mg MS Contin bid and OxyIR 5-10 q4h prn. Tramadol and Celebrex also ordered. Pt currently somewhat sleepy but able to hold a conversation. Pain management has been consulted to see him and Dr Tompkins is currently seeing patient at this time. Discussed with patient that I don't want to do any changes to his pain meds until pt seen by Dr Tompkins and we'll await her recommendations. Has not moved his bowels in 2 days but is passing flatus. States that by the time he gets to the BR, his knee pain is so great, it makes it hard to concentrate on using the restroom. Difficult to do his PT. States he is able to do SLR with one leg but needs some slight help to get the other started. He has no other complaints presently. Objective calves soft nontender, N/V intact, incision C/D/I, A&O x3, toes mobile Silverlon dressings removed from the knees. Both incisions look good. Mild swelling noted of both knees. No overt erythema. No drainage. Calves are soft and NT. No obvious gaps in his extensor mechanism that I can appreciate. Mild bruising noted on the right thigh. Having pain off and on in the thigh's likely due to tourniquet use. Both knees feel stable. Date Time Temp Pulse Resp B/P (MAP) Pulse Ox O2 Delivery O2 Flow Rate FiO2 02/12/17 07:58 98 Room Air 02/12/17 07:45 36.6 95 16 159/87 (111) 98 Room Air 02/12/17 07:30 Room Air 02/11/17 23:30 Room Air CPAP 02/11/17 23:08 36.7 96 17 158/93 (114) 96 CPAP 02/11/17 15:15 Room Air 02/11/17 15:10 36.5 99 20 139/81 (100) 95 Room Air Assessment & Plan Assessment: POD#5 SP BL TKAS Pain control issues Plan: Knees appear benign at this time. He did have a slight increase in his WBC's post op which was likely due to surgical stress/preop steroids. Will get repeat CBC to see if WBC count has normalized. Discussed case with Mauricio Arevalo PA-C/Dr Pa. Will also repeat xrays of the knees. PT/OT DVT PROPH- LOVENOX PAIN MANAGEMENT- MARGARITA, TYLENOL, CELEBREX,MS Contin. Dr Tompkins has seen patient for pain management consult. Recommendations made and she will change meds accordingly. [place] [facility] [place] CM to speak with patient about choosing a SNF. Inhouse Planning Pain Management: Celebrex, Ultram, Morphine, PO Tylenol, Oxy IR DVT Prophylaxis: TEDs, SCDs, Lovenox Discharge Planning Discharge Planning: care home facility DVT Prophylaxis: TEDs Lovenox Therapy: Physical Therapy
--- NOTE | 2017-02-12 10:35 | DIAGNOSTIC IMAGING REPORT ---
Right knee 2 views CLINICAL HISTORY: Increasing knee pain COMPARISON: 02/07/2017 DISCUSSION: There are postsurgical changes of a total right knee arthroplasty and patellar resurfacing. There is no change in the appearance of the prosthesis. There is a small joint effusion. Overlying anterior skin sukhdev are visualized. IMPRESSION: Postsurgical changes of a total right knee arthroplasty. Small joint effusion. Electronically signed by: Eddie Stafford M.D. 02/12/2017 10:34 AM Dictated Date/Time: 02/12/2017 10:33 AM
--- NOTE | 2017-02-12 10:38 | DIAGNOSTIC IMAGING REPORT ---
L KNEE 1 OR 2 VIEWS ROUTINE CLINICAL HISTORY: 56 years-old Male presenting with increased pain/check alignment, bilateral degenerative joint disease. TECHNIQUE: Frontal and crosstable lateral views of the left knee were obtained. COMPARISON: 02/07/2017. FINDINGS: Postsurgical changes of total left knee arthroplasty with patellar resurfacing. Given the recent postoperative state, expected intra-articular emphysema. Calcification posterior to the knee joint may relate to fragmentation of osteophytes or atherosclerosis. No malalignment of the hardware. No fracture or complication evident. Overlying surgical skin sukhdev in place. Knee joint effusion suspected with mild diffuse subcutaneous edema, not unexpected in the postoperative state. IMPRESSION: No significant change in appearance of the expected postsurgical finding status post left total knee arthroplasty. No hardware complication. Additional findings as above. Electronically signed by: Adolph Sinclair M.D. 02/12/2017 10:37 AM Dictated Date/Time: 02/12/2017 10:35 AM
[2017-02-12 10:47] LABS: HEMATOCRIT 31.2 % (42-52); MEAN CORPUSCULAR HEMOGLOBIN 29.8 pg (25-34); MEAN CORPUSCULAR HGB CONC 34.6 g/dl (32-36); MEAN PLATELET VOLUME 10.7 fL (7.4-10.4); PLATELET COUNT 271 K/uL (130-400); RED BLOOD COUNT 3.63 M/uL (4.7-6.1); WHITE BLOOD COUNT 9.94 K/uL (4.8-10.8)
--- NOTE | 2017-02-12 10:47 | Progress Note ---
Subjective Date of Service: Feb 12, 2017. Subjective Pt evaluation today including: conversation w/ patient, chart review, lab review Voiding: no voiding problems 56 yo male s/p bilateral TKA. Pt denies any difficulty voiding post-op. He states his primary issue was retracting of his penis making it difficult to stand up and void. He states he is voiding without difficulty at this time. He c/o ED this morning, and wants to know if our service can prescribe him Viagra. He says his PCP is unwilling to prescribe it for him. He denies any hx of [place] or cardiac disease. Review of Systems Constitutional: No fever, No chills Respiratory: No shortness of breath Cardiac: No chest pain Abdomen: No pain, No nausea Male : No hematuria Heme: No abnormal bleeding/bruising Objective Vital Signs Date Time Temp Pulse Resp B/P (MAP) Pulse Ox O2 Delivery O2 Flow Rate FiO2 02/12/17 07:58 98 Room Air 02/12/17 07:45 36.6 95 16 159/87 (111) 98 Room Air 02/12/17 07:30 Room Air 02/11/17 23:30 Room Air CPAP 02/11/17 23:08 36.7 96 17 158/93 (114) 96 CPAP 02/11/17 15:15 Room Air 02/11/17 15:10 36.5 99 20 139/81 (100) 95 Room Air Physical Exam General Appearance: no apparent distress, + obese Eyes: normal inspection ENT: hearing grossly normal Neck: no JVD Respiratory/Chest: no respiratory distress, no accessory muscle use Cardiovascular: no JVD Extremities: normal inspection Neurologic/Psychiatric: alert, normal mood/affect, oriented x 3 Skin: normal color Laboratory Results Last 24 Hours Test 02/12/17 10:29 Assessment and Plan A/P: Buried penis, ED Pt voiding well. No further management at this time. Will sign off for now. Recall PRN issues. Will arrange for outpatient f/u with Dr. Cooper for discussion of ED and possible Rx for Viagra. Thanks for allowing us to participate in this pt's care.
[2017-02-12] MEDS ORDERED: MRPSR15 PO (11:50)
[2017-02-12] MEDS ORDERED: NRT25 PO (11:50)
[2017-02-12] MEDS ORDERED: LVNIS40 SQ (11:50)
[2017-02-12] MEDS ORDERED: NRN300 PO (11:50)
[2017-02-12] MEDS ORDERED: SENN-61 PO (11:50)
[2017-02-12] MEDS ORDERED: ACET-24 PO (11:50)
[2017-02-12] MEDS ORDERED: MORP-158 PO (11:55)
[2017-02-12] MEDS: GABAPENTIN 300 MG CAP PO SCH ×2 (13:34→21:39)
--- NOTE | 2017-02-12 14:41 | Pain Management Consultation ---
Pain Management Consultation Date of Consultation Feb 12, 2017. 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 Allergies Coded Allergies: No Known Allergies (Unverified , 02/07/17) Medications Current Inpatient Medications Medications (Trade) Dose Ordered Sig/Brady Route Start Time Stop Time Status Last Admin Dose Admin Diltiazem HCl (TIAzac CAP) 240 mg HS PO 02/07/17 21:00 03/09/17 20:59 02/11/17 22:11 240 MG Lisinopril (Zestril Tab) 20 mg HS PO 02/07/17 21:00 03/09/17 20:59 02/11/17 21:18 20 MG Pantoprazole Sodium (Protonix Tab) 40 mg QAM PO 02/08/17 09:00 03/10/17 08:59 02/12/17 09:02 40 MG Zolpidem Tartrate (Ambien Tab) 10 mg HS PO 02/07/17 21:00 03/09/17 20:59 02/11/17 21:52 10 MG Celecoxib (CeleBREX CAP) 200 mg BID PO 02/07/17 21:00 03/09/17 20:59 02/12/17 09:03 200 MG Oxycodone HCl (Roxicodone Immediate Rel Tab) 1 TABLET FOR PAIN RATING... Q4H PRN PO 02/07/17 11:00 02/21/17 10:59 02/12/17 12:34 10 MG Acetaminophen (Tylenol Tab) 1,000 mg Q8 PO 02/07/17 14:30 03/09/17 14:29 02/12/17 13:34 1,000 MG Magnesium Hydroxide (Milk Of Magnesia Susp) 30 ml Q6H PRN PO 02/07/17 11:00 03/09/17 10:59 Bisacodyl (Dulcolax Supp) 10 mg DAILY PRN SC 02/07/17 11:00 03/09/17 10:59 Senna (Senokot Tab) 17.2 mg HS PO 02/07/17 21:00 03/09/17 20:59 02/11/17 21:19 17.2 MG Docusate Sodium (coLACE CAP) 100 mg BID PO 02/07/17 21:00 03/09/17 20:59 02/12/17 09:02 100 MG Al Hydrox/Mg Hydrox/Simethicone (Maalox Max Susp) 15 ml Q4H PRN PO 02/07/17 11:00 03/09/17 10:59 Multivitamins (Multivitamin Tab) 1 tab QAM PO 02/08/17 09:00 03/10/17 08:59 02/12/17 09:02 1 TAB Ondansetron HCl (Zofran Inj) 4 mg Q6H PRN IV 02/07/17 11:00 03/09/17 10:59 Ferrous Gluconate (Ferrous Gluconate Tab) 324 mg TIDM PO 02/07/17 17:45 03/09/17 17:44 02/12/17 12:06 324 MG Tamsulosin HCl (Flomax Cap) 0.4 mg QAM PRN PO 02/07/17 11:00 03/09/17 10:59 Enoxaparin Sodium (Lovenox Inj) 40 mg Q24H SQ 02/08/17 09:00 03/10/17 08:59 02/12/17 09:04 40 MG Morphine Sulfate (Oramorph Sr Tab) 30 mg Q12H PO 02/12/17 02:00 02/23/17 13:59 02/12/17 13:33 30 MG Gabapentin (Neurontin Cap) 300 mg TID PO 02/12/17 14:00 03/14/17 13:59 02/12/17 13:34 300 MG Nortriptyline HCl (Pamelor Cap) 25 mg HS PO 02/12/17 21:00 03/14/17 20:59 Review of Systems 10 point review of systems was otherwise negative aside from HPI Physical Exam Height & Weight: Height 5 feet, 10 inches. Weight 130.500 (Kilograms) 287 (Pounds) Last Vital Signs Documentation Date Time Temp Pulse Resp B/P (MAP) Pulse Ox O2 Delivery O2 Flow Rate FiO2 02/12/17 12:19 97 92 02/12/17 11:45 36.4 24 144/82 (102) Room Air 02/07/17 20:16 2.0 Exam: Awake alert noted 3 appearing in no acute distress accompanied was by his on today's examination He is pleasant and calm and cooperative sitting in his bed during exam Pupils are equally round and reactive to light He has full range of motion of his cervical spine Regular rate and rhythm No audible wheezes or rhonchi normal chest wall excursion Abdomen is protuberant but soft He has intact sensation over all extremities grossly. He has sukhdev in place over bilateral total knee incisions which appear to be without drainage fluctuance or erythema Gait was not observed Laboratory Laboratory Results (Last CBC): 02/12/17 10:29 Imaging Radiology: reports reviewed Radiology Findings Patient: SARAHY SINHA Address1: [address] [place] [address] Rec: [id number] Address2: Acct ID: [id number] [facility] Zip: [place] [address] Date: 1960 Sex: M Room/Bed: [facility] Ref Phy: Emiliano Velazquez D.O. SC: C.3E Att Phy: Jimi Pa D.O. Report #: [id number] Isabel Phy: Emiliano Velazquez D.O. Test: [id number] Admit Phy: Jimi Pa D.O. Surgical Manager: KURT Interpreting Phy: Adolph Sinclair MD Diagnosis: BILATERAL KNEE DEGENERATIVE JOINT DISEASE Ordering Phy: Jeremy Chowdary PAC Service Date: 02/12/17 Admit Date: 02/08/1712/06/17 MNE: [id number] CONF: DICTATED BY: Adolph Sinclair MD]] CC: Jeremy Chowdary,P.A. Jimi Pa D.O. Usaitis, Robert J, D.O. Endcc: DIAGNOSTIC IMAGING ] L KNEE 1 OR 2 VIEWS ROUTINE CLINICAL HISTORY: 56 years-old Male presenting with increased pain/check alignment, bilateral degenerative joint disease. TECHNIQUE: Frontal and crosstable lateral views of the left knee were obtained. COMPARISON: 02/07/2017. FINDINGS: Postsurgical changes of total left knee arthroplasty with patellar resurfacing. Given the recent postoperative state, expected intra-articular emphysema. Calcification posterior to the knee joint may relate to fragmentation of osteophytes or atherosclerosis. No malalignment of the hardware. No fracture or complication evident. Overlying surgical skin sukhdev in place. Knee joint effusion suspected with mild diffuse subcutaneous edema, not unexpected in the postoperative state. IMPRESSION: No significant change in appearance of the expected postsurgical finding status post left total knee arthroplasty. No hardware complication. Additional findings as above. Past Records Previous Records: none available for review [place] Drug Monitoring Program Search Results: patient reviewed within database, no issues identified Opioid Risk Assessment Risk assessment performed, no issues identified 1 prescriber and one pharmacy noted within the last few months. Assessment 1. Acute postoperative pain status post bilateral total knee replacement Recommendations 1. Recommend initiation of gabapentin 300 mg by mouth 3 times a day as well as nortriptyline 25 mg by mouth daily at bedtime. Risk and benefits and side effects were discussed with the patient and orders were written. 2. Recommend continuation of MS Contin 30 mg by mouth every 12 as well as oxycodone as previously written for breakthrough pain 3. Recommend discontinuation of tramadol 4. Continue PT under the direction of orthopedics could consider utilization of a TENS unit if need be in the future 5. Thank you for this consultation the patient can follow up with orthopedics as an outpatient for prescriptions.
[2017-02-12] MEDS ORDERED: NORTRIPTYLINE HCL 25 MG CAP PO SCH (21:00)
[2017-02-12] MEDS: LISINOPRIL 20 MG TAB PO SCH (21:39)
[2017-02-12] MEDS: ZOLPIDEM TARTRATE 10 MG TAB PO SCH (21:39)
[2017-02-12] MEDS: SENNA 8.6 MG TAB PO SCH (21:39)
[2017-02-12] MEDS: DILTIAZEM HCL 120 MG EXT REL CAP PO SCH (21:39)
[2017-02-13] MEDS: OXYCODONE HCL IR 5 MG TAB (IMMEDIATE RELEASE) PO PRN ×4 (01:35→13:42)
[2017-02-13] MEDS: MoRPHine SULFATE CR 15 MG TAB (MS CONTIN) PO SCH (02:22)
[2017-02-13] MEDS: ACETAMINOPHEN 500 MG TAB PO SCH (05:37)
[2017-02-13 07:12] VITALS: BP 119/67; PULSE 86; TEMP 36.8; O2SAT 93
--- NOTE | 2017-02-13 08:05 | Orthopedic Progress Note ---
Orthopedic Progress Note Date of Service Feb 13, 2017. Subjective Post OP Day: 6 Reports: feeling well, Denies: chest pain, SOB, nausea / vomiting, light headedness, calf pain Additional Notes: Had his first good nights sleep. Pain control is better today. Hoping to go to [facility] today. states that patient had some increased "twitching" while he was sleeping. Meds discussed with Pharmacy last night with staff and there were no medicine cross rxns that were noted that would cause this. This was the first time this was noticed. Objective calves soft nontender, N/V intact, incision C/D/I, A&O x3, toes mobile Date Time Temp Pulse Resp B/P (MAP) Pulse Ox O2 Delivery O2 Flow Rate FiO2 02/13/17 07:12 36.8 86 16 119/67 (84) 93 CPAP 02/12/17 23:40 CPAP 02/12/17 22:55 36.9 101 18 132/74 (93) 92 CPAP 02/12/17 20:04 36.9 98 18 132/74 (93) 96 Room Air 02/12/17 18:54 Room Air 02/12/17 16:21 37.0 93 20 145/83 (103) 92 Room Air 02/12/17 16:15 Room Air 02/12/17 12:19 97 92 02/12/17 11:45 36.4 98 24 144/82 (102) 92 Room Air 02/12/17 07:58 98 Room Air Laboratory Results 24 Hours: Test 02/12/17 10:29 Hematocrit 31.2 % Hemoglobin 10.8 g/dL Assessment & Plan Assessment: POD#6 SP BL TKAS Pain control issues are better Plan: Unsure if reason for "twitching". Can discuss with Dr Tompkins. Question due to his first good night of REM sleep in multiple days? Yesterdays WBC's wnl. Xrays reviewed and no issues identified PT/OT DVT PROPH- LOVENOX PAIN MANAGEMENT- Dr Tompkins saw pt yesterday. Continue current pain meds and Gabapentin / Nortriptyline added with good results. DC PLANNING- Pt was approved for [facility]. Plan for dc today Inhouse Planning Pain Management: Celebrex, Ultram, Morphine, PO Tylenol, Oxy IR DVT Prophylaxis: TEDs, SCDs, Lovenox Discharge Planning Discharge Planning: rehab hospital DVT Prophylaxis: TEDs, Lovenox Therapy: Physical Therapy
[2017-02-13] MEDS: CeleBREX 200 MG CAP PO SCH (08:47)
[2017-02-13] MEDS: FERROUS GLUCONATE 324 MG TAB PO SCH ×2 (08:48→12:40)
[2017-02-13] MEDS: ENOXAPARIN 40 MG/0.4 ML SYR SQ SCH (08:48)
[2017-02-13] MEDS: PANTOprazole SOD 40 MG TAB PO SCH (08:48)
[2017-02-13] MEDS: DOCUSATE SODIUM 100 MG CAP PO SCH (08:48)
[2017-02-13] MEDS: MULTIVITAMIN TAB PO SCH (08:48)
[2017-02-13] MEDS: GABAPENTIN 300 MG CAP PO SCH (08:48)
[2017-02-13 08:57] VITALS: BP 119/67; PULSE 86; TEMP 36.8; O2SAT 93
== END 2017-02-13 14:22 | DRG 462 ==
LOC: C.ACU 05:38 → C.3E 06:40 → ENRESERV 11:13
PROVIDERS: ADMIT Orthopaedic Surgery; ATTEND Orthopaedic Surgery
PROC: 0SRD0J9 Replacement of Left Knee Joint with Synthetic Substitute, Cemented, Open Approach (ICD-10-PCS; principal; 2017-02-07 08:15)
PROC: 0SRC0J9 Replacement of Right Knee Joint with Synthetic Substitute, Cemented, Open Approach (ICD-10-PCS; principal; 2017-02-07 08:15)
DX: M17.0 Bilateral primary osteoarthritis of knee (principal); I10 Essential (primary) hypertension; G47.30 Sleep apnea, unspecified; Z90.49 Acquired absence of other specified parts of digestive tract; Z79.82 Long term (current) use of aspirin